=== PATIENT | male | born 1955 | race Caucasian/White ===

== ENCOUNTER → 2017-03-16 | Outpatient (CLI) | payer OTHER ==
[~2017-03-16] MED LIST: COLCRYS0.6 MG PO; PREDNISONE PO; VOLTAREN75 MG PO
--- NOTE | ~2017-03-16 | US5 ---
[facility] A Service of [facility] & [facility] RADIOLOGY TEXT RESULTS PATIENT: VINNIE GARZA LOCATION: [facility] [[email or web address] : 53 UNIT #: [id number] AGE: [address]: CORY DUNBAR SEX: M ORDER DR: [id number] [facility]. [place], [place] [address] [id number] O MR#: [id number] Acc #: [id number] NAME: VINNIE GARZA : 1955 SEX: M STUDY DATE/TIME: 03/16/2017 10:59 UNIT: [facility] [[email or web address] ROOM: STUDY DESCRIPTION: US Abdominal Complete Attending Physician: Cory Dunbar Aprn Referring Physician: Cory Dunbar Aprn Ordering Physician: Cory Dunbar Aprn Primary Care Physician: Vincent France M.D. MEDICAL IMAGING REPORT This report is preliminary unless electronic signature is present EXAM Complete abdominal ultrasound 03/16/2017 HISTORY Hepatitis C virus. Patient states 12-week treatment 4 years ago. Hypertension. Denies current abdominal pain. COMPARISON Complete abdominal ultrasound 03/07/2016, 09/21/2013. FINDINGS The abdominal aortic caliber is within normal limits measuring 2.2 cm proximally, 1.9 cm in the mid segment, and 1.6 cm distally. Color and spectral Doppler flow was documented within the abdominal aorta. The pancreatic tail is partially obscured by bowel gas but the visualized pancreas appears normal. The liver demonstrates a mildly coarsened echotexture which may represent chronic changes related to the patient's hepatitis or potentially a fatty infiltration. However, no focal suspicious liver lesions are identified on today's study. Liver size is within normal limits. No ascites is evident. The right kidney measures 11.7 cm and the left kidney measures 11.4 cm. There is a complex left renal cyst measuring up to 4.6 x 4.4 x 4.6 cm with a thin internal septation. It is approximately stable in size. Spleen size is within normal limits, 13.4 cm in long axis. No focal splenic lesions. Gallbladder is free of shadowing stone, sludge, wall thickening, or [facility] Service of [facility] & [facility] RADIOLOGY TEXT RESULTS PATIENT: [facility]IN[facility]ARZA [id number] : 53 UNIT #: [id number] AGE: [address]: CORY DNUBAR SEX: M ORDER DR: pericholecystic fluid. Common bile duct caliber is normal, 3 mm. No intrahepatic biliary ductal dilation is seen. Intrahepatic IVC demonstrates normal color and spectral Doppler flow. IMPRESSION 1. Mildly coarsened hepatic echotexture may be related to the patient's chronic hepatitis or mild fatty infiltration. However, no focal or suspicious liver lesions are identified today, and there is no evidence of ascites. 2. Spleen size is within normal limits on today's examination. 3. Mildly complex but benign-appearing left renal cyst, roughly stable compared to 03/07/2016. Dictated by... Lissette Rojo M.D. THIS IS AN ELECTRONICALLY VERIFIED REPORT Lissette Rojo M.D. at 03/17/2017 7:09 AM JARRETT/[email or web address] TD: 03/16/2017 21:31 JOB #: [id number] MEDICAL IMAGING REPORT Page 1 of 1 COPY
== END | disposition home or self-care (01) ==
LOC: CGUS 03-06 10:30
DX: B18.2 Chronic viral hepatitis C (principal); N28.1 Cyst of kidney, acquired; R93.2 Abnormal findings on diagnostic imaging of liver and biliary tract
CPT/HCPCS: 76700